=== PATIENT | female | born 1945 | race Caucasian/White ===

== ENCOUNTER 2025-03-02 10:26 | Outpatient (REF) | payer MEDICARE, SELFPAY ==
--- OUTSIDE RECORDS SUMMARY | 2025-03-02 11:30 | XMS_ITS | Encounter Summary ---
Author Organization [facility] Address [id number] [place] [id number] Care Team Providers Care Trimmer Sawyer Name Role Phone Ya Velasco MD Primary Care Provider [phone] Reason for Visit * Reason Comments Follow-up Encounter Details Date Type Department Care Team (Latest Contact Info) Description 02/28/2025 1:15 PM EDT Office Visit Internal Medicine - [place] [address] [facility] [address] [place] [address] Ya Velasco MD 175 [facility] [address] [place] [address] Mixed hyperlipidemia (Primary Dx); Hypothyroidism due to acquired atrophy of thyroid; Multiple sclerosis (CMS/HCC V24, CMS/HCC V28); Vitamin D deficiency; Urinary incontinence, unspecified type Social History Tobacco Use Types Packs/Day Years Used Date Smoking Tobacco: Former Smokeless Tobacco: Never Alcohol Use Standard Drinks/Week Comments No 0 (1 standard drink = 0.6 oz pur e alcohol) Comments Unknown Sex and Gender Information Value Date Recorded Sex Assigned at Not on file Legal Sex Female 3:28 AM EST Gender Identity Not on file Sexual Orientation Not on file documented as of this encounter Last Filed Vital Signs Vital Sign Reading Time Taken Comments Blood Pressure 138/86 02/28/2025 1:23 PM EDT Pulse 72 02/28/2025 1:23 PM EDT Temperature - - Respiratory Rate - - Oxygen Saturation 98% 02/28/2025 1:23 PM EDT Inhaled Oxygen Concentration - - Weight 53.5 kg (118 lb) 02/28/2025 1:23 PM EDT Height - - Body Mass Index 22.3 07/27/2024 10:25 AM EDT documented in this encounter Ordered Prescriptions Prescription Sig Dispense Quantity Refills Last Filled Start Date End Date oxyBUTYnin XL (Ditropan XL) 5 mg 24 hr tablet Take 1 tablet (5 mg total) by mouth 1 (one) time each day. Do not crush, chew, or split. 30 each 02/28/2025 02/28/2026 documented in this encounter Progress Notes * aY Velasco MD - 02/28/2025 1:15 PM EDT CHIEF COMPLAINT: Follow-up IDENTIFIER: Marylu Santiago is a 79 y.o. old female. HPI: Hyperlipidemia, hypothyroidism, urinary incontinence, osteoporosis, vitamin B12 deficiency, dementia, recent history of bowel perforation and surgical repair Patient is doing well concerned about frequent urination. [facility] ROS: GENERAL: No malaise, significant weight loss or fever NECK: No lumps, goiter, pain or significant neck swelling RESPIRATORY: No cough, wheezing or shortness of breath CARDIOVASCULAR: No chest pain, leg swelling or palpitations GI: No abdominal discomfort, blood in stools or black stools PSYCH: No sleep disturbance, mood disorder or recent psychosocial stressors. PAST MEDICAL HISTORY: Patient Active Problem List Diagnosis Date Noted Retroperitoneal abscess ([facility] V24, [facility] V28) 01/20/2024 Perforation of colon ([facility] V24, [facility] V28) 01/20/2024 Spinal stenosis, lumbar region, without neurogenic claudication 03/23/2008 Displacement of lumbar intervertebral disc without myelopathy 03/23/2008 Multiple sclerosis ([facility] V24, [facility] V28) 01/17/2008 Hyperlipidemia 01/17/2008 Hypothyroidism 01/17/2008 Osteoporosis 01/17/2008 Past Surgical History: Procedure Laterality Date BREAST LUMPECTOMY Right 2009 PROCEDURE: HISTORICAL BREAST LUMPECTOMY; COMMENT: Benign SOCIAL HISTORY: Social History Tobacco Use Smoking status: Former Smokeless tobacco: Never Substance Use Topics Alcohol use: No FAMILY HISTORY: Family History Problem Relation Name Age of Onset Other (Other: Multiple sclerosis) Mother Colon cancer Father No Known Problems Brother No Known Problems Brother Heart attack Brother No Known Problems Sister No Known Problems Daughter No Known Problems Maternal Grandmother No Known Problems Maternal Grandfather No Known Problems Paternal Grandmother No Known Problems Paternal Grandfather No Known Problems Other Breast cancer Neg Hx Family Status Relation Name Status Mother Father Brother Alive Brother Brother (Not Specified) Sister (Not Specified) Daughter (Not Specified) MGM (Not Specified) MGF (Not Specified) PGM (Not Specified) PGF (Not Specified) Other (Not Specified) Neg Hx (Not Specified) No partnership data on file MEDICATIONS DISCONTINUED/REORDERED: There are no discontinued medications. ACTIVE MEDICATIONS: No outpatient medications have been marked as taking for the 02/28/25 encounter (Office Visit) with Ya Velasco MD. ALLERGIES: Allergies Allergen Reactions Codeine Swelling PHYSICAL EXAM: Visit Vitals BP 138/86 (BP Location: Right arm, Patient Position: Sitting, BP Cuff Size: Large adult) Pulse 72 Wt 53.5 kg (118 lb) SpO2 98% BMI 22.30 kg/m?? Smoking Status Former BSA 1.51 m?? APPEARANCE: Alert and in no acute distress NECK: Neck supple, no adenopathy, thyroid symmetric and of normal size HEART: RRR with normal S1 and S2, no murmurs, no gallops, no JVD appreciated LUNG: clear to auscultation ABDOMEN: Bowel sounds normoactive, no bruits, soft, non-tender, without organomegaly or palpable masses SKIN: Skin color, texture, turgor normal. No rashes or lesions. LABS/IMAGING: Abstract on 10/13/2024 Component Date Value Ref Range Status Annual BMP Blood Test 02/15/2024 Abstracted Final LDL/HDL Ratio 03/17/2023 3 0 - 4 Final Triglycerides 03/17/2023 106 0 - 150 mg/dL Final Cholesterol 03/17/2023 142 0 - 200 mg/dL Final HDL 03/17/2023 57 >=40 mg/dL Final LDL Cholesterol 03/17/2023 64 0 - 100 mg/dL Final Medication and lab orders: Orders Placed This Encounter Procedures Complete blood count Comprehensive metabolic panel Lipid panel with reflex to direct LDL Thyroid stimulating hormone Urinalysis with reflex culture Vitamin B12 Other orders: None IMPRESSION: 1. Mixed hyperlipidemia 2. Hypothyroidism due to acquired atrophy of thyroid 3. Multiple sclerosis (CMS/HCC V24, CMS/HCC V28) 4. Vitamin D deficiency 5. Urinary incontinence, unspecified type PLAN: Urinary incontinence--will discontinue tamsulosin, start oxybutynin 5 mg, urine analysis ordered Hyperlipidemia--continue atorvastatin 80 mg daily, lipids ordered Hypothyroidism--continue levothyroxine, TSH ordered Osteoporosis--continue Fosamax Dementia--continue Namenda 5 mg twice daily Vitamin B12 deficiency--continue the supplement Will order CBC CMP A1c lipid TSH vitamin B12 Will follow-up in 5 months or sooner as needed Ya Velasco MD on 02/28/2025 at 1:57 PM EDT documented in this encounter Plan of Treatment Upcoming Encounters Date Type Department Care Team (Late st Contact Info) Description 08/06/2025 1:15 PM EDT Office Visit Internal Medicine - [place] [address] [facility] [address] [place] [address] Ya Velasco MD 175 [facility] [address] [place] [address] Scheduled Orders Name Type Priority Associated Diagnoses Orde r Schedule Complete blood count Lab Routine Mixed hyperlipidemia Hypothyroidism due to acquired atrophy of thyroid Multiple sclerosis ([facility] V24, [facility] V28) Vitamin D deficiency Expected: 02/28/2025, Expires: 02/28/2026 Comprehensive metabolic panel Lab Routine Mixed hyperlipidemia Hypothyroidism due to acquired atrophy of thyroid Multiple sclerosis ([facility] V24, [facility] V28) Vitamin D deficiency Expected: 02/28/2025, Expires: 02/28/2026 Lipid panel with reflex to direct LDL Lab Routine Mixed hyperlipidemia Hypothyroidism due to acquired atrophy of thyroid Multiple sclerosis ([facility]/HCC V24, [facility] V28) Vitamin D deficiency 1 Occurrences starting 02/28/2025 until 02/28/2026 Thyroid stimulating hormone Lab Routine Mixed hyperlipidemia Hypothyroidism due to acquired atrophy of thyroid Multiple sclerosis ([facility]/HCC V24, [facility] V28) Vitamin D deficiency Expected: 02/28/2025, Expires: 03/30/2025 Urinalysis with reflex culture Lab Routine Urinary incontinence, unspecified type Expected: 02/28/2025, Expires: 03/30/2025 Vitamin B12 Lab Routine Mixed hyperlipidemia Hypothyroidism due to acquired atrophy of thyroid Multiple sclerosis ([facility] V24, [facility] V28) Vitamin D deficiency Expected: 02/28/2025, Expires: 03/30/2025 documented as of this encounter Visit Diagnoses Diagnosis Mixed hyperlipidemia- Primary Hypothyroidism due to acquired atrophy of thyroid Multiple sclerosis (CMS/HCC V24, [facility] V28) Multiple sclerosis Vitamin D deficiency Urinary incontinence, unspecified type documented in this encounter Care Teams Trimmer Sawyer Relationship Specialty Start Date End Date Ya Velasco MD [address] [place] [phone] PCP - General Internal Medicine 11/22/20 documented as of this encounter
--- OUTSIDE RECORDS SUMMARY | 2025-03-02 11:30 | XMS_ITS | Clinical Summary ---
Author Organization 175 [facility] Address [address] [place] [address] Phone Care Team Providers Care Airport Control Operator Name Role Phone Ya Velasco MD Primary Care Provider [phone] Allergies Active Allergy Reactions Criticality Noted Date Comments Codeine Swelling 09/20/2008 Medications cholestyramine (QUESTRAN) 4 gram packet Take 1 Packet by mouth 3 times daily (with meals). Active acetaminophen 500 mg powder in packet Take by mouth. Active cyanocobalamin , vitamin B-12, 1,000 mcg capsule Take by mouth. Active sodium phosphates (Fleet Enema Extra) 19-7 gram/[address] rectally. Active atorvastatin calcium (LIPITOR ORAL) Take by mouth. Active dorzolamide (TRUSOPT) 2 % ophthalmic solution 3 Active latanoprost (XALATAN) 0.005 % ophthalmic solution Place 1 Drop into both eyes at bedtime. 2 Active baclofen (LIORESAL) 10 mg tablet Take 10 mg by mouth 2 times daily. Active MULTIVITAMIN ORAL 1 tab daily 8 Active aspirin 81 mg EC tablet TAKE ONE TABLET BY MOUTH EVERY DAY 30 tablet 2 5 Active alendronate (FOSAMAX) 70 mg tablet Take 1 tablet (70 mg total) by mouth every 7 (seven) days. 12 tablet 1 5 Active atorvastatin (LIPITOR) 80 mg tablet TAKE ONE TABLET BY MOUTH EVERY DAY 90 tablet 3 5 Active levothyroxine (SYNTHROID, LEVOTHROID) 50 mcg tablet TAKE ONE TABLET BY MOUTH EVERY DAY 90 tablet 3 5 Active tamsulosin (FLOMAX) 0.4 mg 24 hr capsule Take 1 capsule (0.4 mg total) by mouth 1 (one) time each day. 90 capsule 3 5 Active memantine (NAMENDA) 5 mg tablet TAKE ONE TABLET BY MOUTH TWICE A DAY 180 tablet 3 5 Active cyanocobalamin (VITAMIN B-12) 500 mcg tablet TAKE ONE TABLET BY MOUTH EVERY DAY 90 tablet 3 5 Active oxyBUTYnin XL (Ditropan XL) 5 mg 24 hr tablet Take 1 tablet (5 mg total) by mouth 1 (one) time each day. Do not crush, chew, or split. 30 each 11 5 02/29/20 26 Active levothyroxine (SYNTHROID, LEVOTHROID) 50 mcg tablet Take 1 Tablet by mouth daily. 4 02/06/20 25 Discontinued memantine (NAMENDA) 5 mg tablet Take 1 Tablet by mouth 2 times daily. 4 02/06/20 25 Discontinued tamsulosin (FLOMAX) 0.4 mg 24 hr capsule Take 1 Capsule by mouth daily. Take 30 mins after same meal every day. 4 02/06/20 25 Discontinued cyanocobalamin (VITAMIN B-12) 500 mcg tablet Take 1 Tablet by mouth daily for 360 days. 4 02/06/20 25 Discontinued Active Problems Problem Noted Date Diagnosed Date Retroperitoneal abscess ([facility] V24, [facility] V2 8) 01/20/2024 Perforation of colon ([facility] V24, [facility] V28) 01/20/2024 Spinal stenosis, lumbar cara on, without neurogenic claudication 03/23/2008 Displacement of lumbar inter vertebral disc without myelopathy 03/23/2008 Multiple sclerosis ([facility] V24, [facility] V28) Overview (10/13/2024): Onset approx 1995, Dx 2000. Followed regularly by Dr. Hernandez Hyperlipidemia 01/17/2008 Hypothyroidism 01/17/2008 Osteoporosis 01/17/2008 Encounters Date Type Department Care Team Description 02/28/2025 1:15 PM EDT Office Visit Internal Medicine - [address] [place] [address] Ya Velasco MD Mixed hyperlipidemia (Primary Dx); Hypothyroidism due to acquired atrophy of thyroid; Multiple sclerosis ([facility] V24, [facility] V28); Vitamin D deficiency; Urinary incontinence, unspecified type from Last 3 Months Immunizations Name Administration Dates Next Due H1N1 Inj Preservative Free 10/10/2009 Influenza trivalent, 0.5mL, preservative free (Fluarix; FluLaval; Fluzone) ages 6mo and older (Afluria) 3 years and older 07/19/2012,09/07/2011,08/02/2010,08/06,08/10/2008 Pneumococcal polysaccharide 23 valent (Pneumovax 23) 2yo and older 03/12/2011 Tdap Tetanus diptheria acell ular pertussis (Boostrix; Adacel) 7yo and older 08/29/2024,01/17/2008 Surgical History Surgery Date Site/Laterality Comments BREAST LUMPECTOMY 2009 Right PROCEDURE: HISTORICAL BREAST LUMPECTOMY; COMMENT: Benign Medical History Medical History Date Comments Multiple sclerosis ([facility] V24, [facility] V28) DX:Multiple sclerosis ([facility]) Osteoporosis DX:Osteoporosis Hypothyroidism DX:Hypothyroidis m Hyperlipidemia DX:Hyperlipidemi a Displacement of lumbar inter vertebral disc without myelopathy 03/23/2008 DX:Displacement of lumbar intervertebral disc without myelopathy Family History Medical History Relation Name Comments No Known Problems Brother 1 No Known Problems Brother 2 Heart attack Brother 3 No Known Problems Daughter Colon cancer Father No Known Problems Maternal Grandfather No Known Problems Maternal Grandmother Other: Multiple sclerosis Mother No Known Problems Other No Known Problems Paternal Grandfather No Known Problems Paternal Grandmother No Known Problems Sister Breast cancer Neg Hx Relation Name Status Comments Brother 1 Alive Brother 2 Brother 3 Daughter Father Maternal Grandfather Maternal Grandmother Mother Other Paternal Grandfather Paternal Grandmother Sister Social History Tobacco Use Types Packs/Day Years Used Date Smoking Tobacco: Former Smokeless Tobacco: Never Alcohol Use Standard Drinks/Week Comments No 0 (1 standard drink = 0.6 oz pur e alcohol) Comments Unknown Sex and Gender Information Value Date Recorded Sex Assigned at Not on file Legal Sex Female 3:28 AM EST Gender Identity Not on file Sexual Orientation Not on file Obstetrics History Last Filed Vital Signs Vital Sign Reading Time Taken Comments Blood Pressure 138/86 02/28/2025 1:23 PM EDT Pulse 72 02/28/2025 1:23 PM EDT Temperature - - Respiratory Rate - - Oxygen Saturation 98% 02/28/2025 1:23 PM EDT Inhaled Oxygen Concentration - - Weight 53.5 kg (118 lb) 02/28/2025 1:23 PM EDT Height 154.9 cm (5' 1 ) 07/27/2024 10:25 AM EDT Body Mass Index 22.3 07/27/2024 10:25 AM EDT Plan of Treatment Upcoming Encounters Date Type Department Care Team (Late st Contact Info) Description 08/06/2025 1:15 PM EDT Office Visit Internal Medicine - [place] [address] [facility] [address] [place] [address] Ya Velasco MD 175 [facility] [address] [place] [address] Health Maintenance Due Date Last Done Comments RSV Immunization Adult Patients (1 - 1-dose 75+ series) 2020 Depression Screening 10/10/2022 Falls Risk Assessment 10/10/2022 Hepatitis C Screening 10/10/2022 Medicare Annual Wellness Visit 10/10/2022 Osteoporosis Screening (Bone Density Screening) 10/10/2022 Social Influencers of Health Screening 10/10/2022 COVID-19 Vaccine ( season) 2025 08/21/2024, 08/09/2023, 10/15/2022, Additional history exists Cholesterol Screening (Lipid Panel) 03/17/2028 03/17/2023 DTaP,Tdap,and Td Vaccines (3 - Td or Tdap) 08/29/2034 08/29/2024, 01/17/2008 Zoster Vaccines Completed 07/23/2018, 02/09/2018 Pneumococcal Vaccine: 50+ Years Completed 01/12/2020, 12/30/2015, 03/12/2011 Influenza Vaccine Completed 08/21/2024, , 08/27/2022, Additional history exists HIB Vaccines Aged Out No longer eligi ble based on patient's age to complete this topic HPV Vaccines Aged Out No longer eligi ble based on patient's age to complete this topic Hepatitis A Vaccines Aged Out No long er eligible based on patient's age to complete this topic Hepatitis B Vaccines Aged Out No long er eligible based on patient's age to complete this topic IPV Vaccines Aged Out No longer eligi ble based on patient's age to complete this topic MMR Vaccines Aged Out No longer eligi ble based on patient's age to complete this topic Meningococcal ACWY Vaccine Aged Out N o longer eligible based on patient's age to complete this topic Meningococcal B Vaccine Aged Out No l onger eligible based on patient's age to complete this topic RSV Immunization Patients Under 20 months Aged Out No longer eligible based on patient's age to complete this topic Varicella Vaccines Aged Out No longer eligible based on patient's age to complete this topic Procedures Procedure Name Priority Date/Time Associated Diagnosis Comments LIPID PANEL Routine 03/17/2023 from Last 3 Months or Most Recently Relevant to Health Maintenance Results * Lipid panel (03/17/2023) LDL/HDL Ratio 3 0 - 4 Triglycerides 106 0 - 150 mg/dL Cholesterol 142 0 - 200 mg/dL HDL 57 >=40 mg/dL LDL Cholesterol 64 0 - 100 mg/dL Blood Venous blood specimen / Unknown [facility] [place] Provider LAB BLOOD ORDERABLES Ольга l Result from Last 3 Months or Most Recently Relevant to Health Maintenance Insurance [employer] - [place] MEDICARE ADVANTAGE Advance Directives Documents on File Type Date Recorded Patient Clinical Manager Home Care Expl anation Health Care Decision (hx) 01/13/2024 FLACO DIAS DIRECTIVE Care Teams Airport Control Operator Relationship Specialty Start Date End Date Ya Velasco MD [address] [place] [phone] PCP - General Internal Medicine 11/22/20
--- OUTSIDE RECORDS SUMMARY | 2025-03-02 11:30 | XMS_ITS ---
Author Organization [facility] Care Team Providers Care Entry Level Business Analyst Name Role Phone Rae Armando Unavailable Unavailable Serge Duong Unavailable Unavailable Aditi Ramos Unavailable Unavailable Mariana Acevedo Unavailable Unavailable Jose G Nunn Unavailable Unavailable Allergies and adverse reactions Code CodeSystem Substance Reaction Severity StartDate Concern Status 2670 RXNORM Codeine Swelling (code- [id number], SNOMED CT) Moderate 01/08/2024 active Care Team Name Role Address Phone Organization Dates Serge Duong PCP [address] [facility] [address], [place], [address], [place] (Office): [facility] 01/08/2024 - 02/06/2024 Rae Armando Attending Physician [address] [facility] [facility] [address], [place], [address], [place] (Office): [facility] 01/08/2024 - 02/06/2024 Aditi Ramos Attending Physician [address] [facility] [address], [place], [address], [facility] (Office): [facility] 01/08/2024 - 02/06/2024 Mariana Acevedo Attending Physician [address] [facility], [place], [address], [place] (Office): [facility] 01/08/2024 - 02/06/2024 Jose G Nunn Attending Physician [address] [place], [address], [place] (Office): : [facility] 01/08/2024 - 02/06/2024 Immunizations Immunization Status Vaccine Details Vaccine Code CodeSystem Date Notes Influenza completed Influenza, split virus, quadrivalent, injectable, contains preservative lotNumber: [id number] Given 0.5 ml Right Deltoid intramuscularly 158 CVX created date: 01/13/2024 administer ed date: 08/09/2023 Pneumococcal Conjugate Vaccine (PCV13) completed pneumococcal conjugate vaccine, 13 valent Given 0.5 ml intramuscularly 133 CVX created date: 01/13/2024 administer ed date: 01/12/2020 Pneumococcal Conjugate Vaccine (PCV13) completed pneumococcal conjugate vaccine, 13 valent 133 CVX created date: 01/13/2024 administer ed date: 12/30/2015 Pneumococcal Polysaccharide Vaccine (PPSV23) completed pneumococcal polysaccharide vaccine, 23 valent Given 0.5 ml Right Deltoid intramuscularly 33 CVX created date: 01/13/2024 administer ed date: 03/12/2011 TDAP( Tetanus/Diptheria/ Perutssis) completed tetanus toxoid, reduced diphtheria toxoid, and acellular pertussis vaccine, adsorbed lotNumber: [id number] Given 0.5 ml Right Deltoid intramuscularly 115 CVX created date: 01/13/2024 administer ed date: 01/17/2008 SARS-COV-2 (COVID-19) completed SARS-COV-2 (COVID-19) vaccine, subunit, recombinant spike protein-nanoparticl e+Matrix-M1 Adjuvant, preservative free, 5 mcg/0.5 mL dose lotNumber: [id number] Given 0.3 ml Left Deltoid intramuscularly Step 1 of Multi-step with next step required 313 CVX created date: 01/13/2024 administer ed date: 08/09/2023 SARS-COV-2 (COVID-19) completed SARS-COV-2 (COVID-19) vaccine, mRNA, spike protein, LNP, preservative free, jordana-sucrose, 30 mcg/0.3 mL dose lotNumber: [id number] Given 0.3 ml Left Deltoid intramuscularly Step 1 of Multi-step with next step required 309 CVX created date: 01/13/2024 administer ed date: 10/15/2022 SARS-COV-2 (COVID-19) completed SARS-COV-2 (COVID-19) vaccine, mRNA, spike protein, LNP, preservative free, jordana-sucrose, 30 mcg/0.3 mL dose lotNumber: [id number] Given 0.3 ml Left Deltoid intramuscularly Step 1 of Multi-step with next step required 309 CVX created date: 01/13/2024 administer ed date: 02/09/2022 SARS-COV-2 (COVID-19) completed SARS-COV-2 (COVID-19) vaccine, mRNA, spike protein, LNP, preservative free, jordana-sucrose, 30 mcg/0.3 mL dose lotNumber: [id number] Given 0.3 ml Left Deltoid intramuscularly Step 1 of Multi-step with next step required 309 CVX created date: 01/13/2024 administer ed date: 01/04/2021 SARS-COV-2 (COVID-19) completed SARS-COV-2 (COVID-19) vaccine, mRNA, spike protein, LNP, preservative free, jordana-sucrose, 3 mcg/0.3 mL dose lotNumber: [id number] Given 0.3 ml Left Deltoid intramuscularly Step 1 of Multi-step with next step required 308 CVX created date: 01/13/2024 administer ed date: 12/14/2020 Shingrix completed zoster vaccine recombinant Given 0.5 ml intramuscularly 187 CVX created date: 01/13/2024 administer ed date: 07/23/2018 Shingrix completed zoster vaccine recombinant Given 0.5 ml intramuscularly 187 CVX created date: 01/13/2024 administer ed date: 02/09/2018 SARS-COV-2 (COVID-19 BOOSTER) completed SARS-COV-2 (COVID-19) vaccine, mRNA, spike protein, LNP, preservative free, jordana-sucrose, 30 mcg/0.3 mL dose lotNumber: [id number] Given 0.3 ml Right Deltoid intramuscularly 309 CVX created date: 01/13/2024 administer ed date: 07/26/2021 Mental Status Section Date Assessment Total Score Description 02/06/2024 CAM 0 No delirium ind icated 01/14/2024 BIMS 13 cognitively int act CAM 0 No delirium ind icated PHQ-9 01 minimal depress ion Problems Problem # Description Date of onset Resolved Date Code CodeSystem Concern Status 1 ENTEROCOLITIS DUE TO CLOSTRIDIUM DIFFICILE, NOT SPECIFIED RECURRENT 01/28/[address] active 2 AGE-RELATED OSTEOPOROSIS WITHOUT CURRENT PATHOLOGICAL FRACTURE 01/08/[address] active 3 FAMILIAL HYPOPHOSPHATEMIA 01/08/[address] active 4 FRACTURE OF ONE RIB, LEFT SIDE, SUBSEQUENT ENCOUNTER FOR FRACTURE WITH ROUTINE HEALING 01/08/[address] active 5 FUNCTIONAL URINARY INCONTINENCE 01/08/[address] active 6 HYPERLIPIDEMIA, UNSPECIFIED 01/08/[address] active 7 HYPOMAGNESEMIA 01/08/[address] ac tive 8 HYPOTHYROIDISM, UNSPECIFIED 01/08/[address] active 9 ILEUS, UNSPECIFIED 01/08/[address] T active 10 MULTIPLE SCLEROSIS 01/08/[address] active 11 MUSCLE WEAKNESS (GENERALIZED) 01/08/[address] active 12 OTHER MALAISE 01/08/[address] act rubens 13 PERFORATION OF INTESTINE (NONTRAUMATIC) 01/08/[address] active 14 PERSONAL HISTORY OF TRANSIENT ISCHEMIC ATTACK (TIA), AND CEREBRAL INFARCTION WITHOUT RESIDUAL DEFICITS 01/08/[address] active 15 REPEATED FALLS 01/08/[address] ac tive 16 SEPSIS, UNSPECIFIED ORGANISM 01/08/[address] active 17 UNSPECIFIED DEMENTIA , UNSPECIFIED SEVERITY, WITHOUT BEHAVIORAL DISTURBANCE, PSYCHOTIC DISTURBANCE, MOOD DISTURBANCE, AND ANXIETY 01/08/[address] active 18 UNSPECIFIED GLAUCOMA 01/08/[address] active 19 UNSTEADINESS ON FEET 01/08/[address] active 20 VITAMIN B12 DEFICIENCY ANEMIA, UNSPECIFIED 01/08/[address] active Reason for Referral No Reasons for Referral Entered Social History Social History Observation Description Start Date End Date Code Code System Current Smoking Status Tobacco smoking consumption unknown 067258270 SNOMED CT Sex Assigned At Female 1945 17774-5 [facility] Vital Signs Code Code System Vitals Name Values and Units Timing Information 73902-5 [facility] Pain Level Value=0.0 02/06/2024 9279-1 [facility] Respiratory Rate Value=18.0 Units=/m in 02/06/2024 8462-4 [facility] Blood Pressure-Diastolic Value=72 Un its=mmHg 02/06/2024 8480-6 [facility] Blood Pressure-Systolic Fpdmb=730 Un its=mmHg 02/06/2024 8310-5 [facility] Body Temperature Value=97.6 Units=?? F 02/06/2024 8867-4 [facility] Heart rate Value=72.0 Units=/min 05/2024 34878-3 [facility] O2 % BldC Oximetry Value=96.0 Units= % 02/06/2024 21745-7 [facility] Weight Giuyj=177.1 Units=Lbs 12/2023 8302-2 [facility] Height Value=62.1 Units=Inches 01/08/2024
[2025-03-02 13:17] LABS: MANUAL DIFF FLAG NO
[2025-03-02 13:44] LABS: Basophils Absolute Auto 0.1 X10*3/uL (0.0-0.2); Basophils Percent Auto 0.8 % (0-2); Eosinophils Absolute Auto 0.1 X10*3/uL (0.0-0.4); Hematocrit 44.9 % (37.0-47.0); Imm Gran Abs Auto 0.02 X10*3/uL (0.00-0.03); Imm Gran Pct Auto 0.3 % (0.0-0.4); Lymphocytes Absolute Auto 1.5 X10*3/uL (1.2-4.9); Lymphocytes Percent Auto 21.4 % (20-40); Mean Corpuscular HGB Conc 33.4 g/dl (31.0-35.0); Mean Corpuscular Hemoglobin 31.3 pg (27.0-33.0); Mean Corpuscular Volume 93.7 fL (80.0-98.0); Mean Platelet Volume 10.8 fL (9.4-12.3); Monocytes Absolute Auto 0.5 X10*3/uL (0.1-1.2); Monocytes Percent Auto 7.4 % (2-11); Neutrophils Absolute Auto 4.9 x10*3/uL (2.0-8.3); Neutrophils Percent Auto 69.1 % (45-73); Platelet Count 306 X10*3/uL (160-400); Red Blood Count 4.79 X10*6/uL (4.20-5.50); White Blood Count 7.1 X10*3/uL (4.8-10.8)
[2025-03-02 13:55] LABS: Alanine Aminotransferase 35 U/L (0-31); Albumin Level 4.5 g/dL (3.5-5.0); Alkaline Phosphatase 89 U/L (39-117); Anion Gap 11 (12-20); Aspartate Amino Transferase 33 U/L (5-31); Bilirubin Total 0.8 mg/dL (0.0-1.0); Blood Urea Nitrogen 13 mg/dL (9-16); Calcium 9.4 mg/dL (8.4-10.2); Carbon Dioxide 27 mmol/L (22-29); Chloride 106 mmol/L (96-108); Cholesterol 130 mg/dL (<200); Estimated Glomerular Filt Rate > 60; Glucose Random 107 mg/dL (60-115); HDL Cholesterol 50 mg/dL (>40); LDL Cholesterol Calculated 60 mg/dL (<100); Potassium 4.4 mmol/L (3.3-5.1); Sodium 140 mmol/L (135-145); Total Protein 7.3 g/dL (6.5-8.0); Triglycerides 100 mg/dL (<150)
[2025-03-02 14:13] LABS: Thyroid Stimulating Hormone 1.05 uIU/mL (0.32-4.0)
[2025-03-02 14:14] LABS: Vitamin B12 1205 pg/mL (200-900)
== END 2025-03-02 10:27 | disposition home or self-care (01) ==
LOC: HO.HMGCLDS 10:26
PROVIDERS: PCP Internal Medicine; Visit Provider Internal Medicine
DX: E78.2 Mixed hyperlipidemia (principal); E55.9 Vitamin D deficiency, unspecified; E03.4 Atrophy of thyroid (acquired); G35 Multiple sclerosis
CPT/HCPCS: 36415; 80053; 80061; 82607; 84443; 85025